=== PATIENT | female | born 1995 | race African-American/Black ===

== ENCOUNTER → 2019-08-21 | Outpatient (CLI) | payer OTHER ==
--- NOTE | 2019-08-21 13:36 | REP ---
PELVIC ULTRASOUND: Real-time sonographic evaluation of the pelvis performed utilizing transabdominal and endovaginal technique. Uterus measures 8.8 x 4.4 x 6.6 cm. There appears to be a small gestational sac in the endometrial canal with a mean sac diameter of 4 mm corresponding to an estimated gestational age of 4 weeks 4 days. There is no internal yolk sac or pole. No other findings are seen in the endometrial canal. The right ovary is normal in size and echotexture with no torsion, 2.9 x 2.1 x 3.1 cm. Left ovary measures 6.4 x 3.0 x 3.5 cm, with no torsion. There are multiple prominent follicles in the left ovary. The largest measures 2.6 x 1.7 x 2.0 cm. There is mild free fluid. 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 Electronically Signed by Maximilian Roy MD 08/21/2019 01:42 P
== END ==
LOC: M RAD 10:47
PROVIDERS: ATTEND Nurse Practitioner Family
DX: Z32.01 Encounter for pregnancy test, result positive (principal)

== ENCOUNTER 2020-03-30 10:30 | Day surgery (SDC) | payer OTHER ==
[~2020-03-30] VITALS: Ht 162.6 cm; Wt 102.1 kg
[~2020-03-30 10:30] MED LIST: NS 1,000 ML IV ONE; OMEP40CA97 PO
[2020-03-30] MEDS ORDERED: LIDOCAINE 2% 100MG/5ML SDV (FOR ANES.) As Ordered ONE (11:24)
[2020-03-30] MEDS ORDERED: propofoL 200 MG/20 ML VIAL As Ordered ONE (11:24)
--- NOTE | 2020-03-30 12:05 | ROOR ---
Patient Name: David Mora Procedure Date: 03/30/2020 11:48 AM Date of : 1995 Age: 24 Room: [facility] Gender: Female Note Status: Finalized Procedure: Upper Endoscopy + Biopsies Indications: Heartburn, Nausea with vomiting Providers: Reuben Meléndez MD Referring MD: Deshaun Faustin Md Requesting Provider: Medicines: Monitored Anesthesia Care Complications: No immediate complications. Procedure: Pre-Anesthesia Assessment: - The heart rate, respiratory rate, oxygen saturations, blood pressure, adequacy of pulmonary ventilation, and response to care were monitored throughout the procedure. The Endoscope was introduced through the mouth, and advanced to the second part of duodenum. The upper GI endoscopy was accomplished without difficulty. The patient tolerated the procedure well. Findings: The Z-line was regular and was found 40 cm from the incisors. No other significant abnormalities were identified in a careful examination of the stomach. Biopsies were taken with a cold forceps in the gastric antrum for Helicobacter pylori testing. The exam of the duodenum was otherwise normal. Impression: - Z-line regular, 40 cm from the incisors. - Biopsies were taken with a cold forceps for Helicobacter pylori testing. - The examination was otherwise normal. Recommendation: - Patient has a contact number available for emergencies. The signs and symptoms of potential delayed complications were discussed with the patient. Return to normal activities tomorrow. Written discharge instructions were provided to the patient. - High fiber diet. - Discharge patient to home. - Continue present medications. - Await pathology results. - Telephone GI clinic for pathology results in 1 week. - Return to referring physician. - The findings and recommendations were discussed with the patient. Procedure Code(s): --- Professional --- 34439, Esophagogastroduodenoscopy, flexible, transoral; with biopsy, single or multiple Diagnosis Code(s): --- Professional --- R12, Heartburn R11.2, Nausea with vomiting, unspecified CPT copyright 2019 [employer]. All rights reserved. The codes documented in this report are preliminary and upon criminal investigator review may be revised to meet current compliance requirements. Reuben Meléndez MD Reuben Meléndez MD 03/30/2020 12:05:08 PM Electronically signed by Reuben Meléndez MD Number of Addenda: 0 Note Initiated On: 03/30/2020 11:48 AM Estimated Blood Loss: Estimated blood loss: none.
[2020-03-30 12:25] VITALS: BP 130/88
== END 2020-03-30 12:38 | disposition home or self-care (01) ==
LOC: M OPP 10:30
PROVIDERS: ATTEND Internal Medicine Gastroenterology
DX: R12 Heartburn (principal); R11.2 Nausea with vomiting, unspecified